=== PATIENT | female | born 1980 | race Caucasian/White ===

== ENCOUNTER 2018-08-01 13:00 | Emergency (ER) | payer OTHER, SELFPAY ==
[2018-08-01 13:06] VITALS: BP 118/74; PULSE 53; RESP 18; TEMP 35.9; O2SAT 98; BMI 27.8
--- NOTE | 2018-08-01 13:42 | PC.NURSE ---
Pt w/ left 1st knuckle pain and swelling w/ redness. Pt has been gardening and may have foreign body. Hurts to extend. Can make a fist w/ pain. Full CSM w/ movement only limited by pain. TDAP up to date. Area of redness marked w/ skin marker.
--- NOTE | 2018-08-01 13:43 | DI.RAD.S_ITS ---
PROCEDURE: XR HAND RT 2V INDICATIONS: red/swollen/painful 1st knuckle: ? if foreign body TECHNIQUE: 2 views of the hand(s) acquired. COMPARISON: None. FINDINGS: Bones: No fractures or dislocations. Carpal bones are normally aligned. No suspicious bony lesions. No bony erosive changes are seen. Soft tissues: No suspicious soft tissue calcifications. Mild soft tissue swelling over dorsal aspect of metacarpal heads are seen. IMPRESSION: Mild dorsal soft tissue swelling over dorsal aspect of second metacarpal head. No acute fracture or dislocation. No radiopaque foreign body. No radiographic evidence of osteomyelitis. Dictated by: Sae Whitlock M.D. on 08/01/2018 at 14:13 Approved by: Sae Whitlock M.D. on 08/01/2018 at 14:14
--- NOTE | 2018-08-01 13:49 | ED_ITS ---
HPI - Extremity Injury (Upper) <RASHI Alfaro - Last Filed: 08/01/18 14:59> General Chief Complaint: Extremity Injury, Upper Stated Complaint: pain in right hand Time Seen by Provider: 08/01/18 13:41 Source: patient Mode of arrival: ambulatory Limitations: no limitations History of Present Illness HPI narrative: The patient is a 38-year-old female nonsmoker with history of carpal tunnel on her right hand presents with chief complaint of pain in her right hand. She was gardening a few days ago, and is concerned that she has a thorn or sticking dental stuck in her hand. She states she did remove a thorn from that area 2 days ago. She has been soaking her hand in Epsom salts. She denies any fevers nausea vomiting diarrhea. She stated redness noted yesterday and has been extending today. She states that the pain is over the base of her right pointer finger. She states it is becoming increasingly hard to move her right pointer finger. She states her tetanus is up-to-date within the past few years. Related Data Previous Rx's Medication Instructions Recorded cephalexin 500 mg PO QID #40 cap 08/01/18 Allergies Allergy/AdvReac Type Severity Reaction Status Date / Time No Known Drug Allergies Allergy Verified 08/01/18 13:11 Review of Systems <RASHI Alfaro - Last Filed: 08/01/18 14:59> Review of Systems GENERAL: Denies chills, fatigue, malaise, fever, sweats. HEENT: Denies sinus pain, ear pain, sore throat, difficulty swallowing, dizziness. RESPIRATORY: Denies dyspnea, cough, wheezing, hemoptysis, sputum. CARDIOVASCULAR: Denies chest pain, palpitations, orthopnea, edema, GASTROINTESTINAL: Denies nausea, vomiting, abdominal pain, diarrhea, constipation, melena. : Denies dysuria, frequency, incontinence, hematuria, urinary retention. MUSCULOSKELETAL: See HPI SKIN: See HPI NEUROLOGIC: Denies weakness, headache, numbness, change in speech, confusion, seizures, incoordination. PSYCHIATRIC: No concerning psychosocial issues. 12 point review of systems is negative except for those stated above PFSH <RASHI Alfaro - Last Filed: 08/01/18 14:59> Medical History (Updated 08/01/18 @ 14:55 by RASHI Alfaro) History of carpal tunnel syndrome (Acute) Social History Smoking Status: Never smoker Social History Smoking Status: Never smoker Exam <RASHI Alfaro - Last Filed: 08/01/18 14:59> Narrative Exam Narrative: GENERAL: This is a well-nourished, well-developed patient, in no acute distress HEAD: Atraumatic. Normocephalic. No temporal or scalp tenderness. EYES: Pupils equal round and reactive. Extraocular motions intact. No scleral icterus. No injection or drainage. ENT: Nose without bleeding, purulent drainage or septal hematoma. Throat without erythema, tonsillar hypertrophy or exudate. Uvula midline. Airway patent. NECK: Trachea midline. No JVD or lymphadenopathy. Supple, nontender, no meningeal signs. CARDIOVASCULAR: Regular rate and rhythm RESPIRATORY: No cough. No increased respiratory effort. No accessory muscle use. EXTREMITIES: Slightly decreased flexion of right 2nd digit. Capillary refill less than 2 seconds all fingers right hand. Radial pulse intact right hand. BACK: Nontender without deformity or crepitance. No flank tenderness. NEURO: AOx3. SKIN: 3 x 3 cm of erythema at the base of the pointer finger right. No drainage. No obvious laceration or abrasion. Initial Vital Signs Initial Vital Signs: Vital Signs Temperature 96.7 F L 08/01/18 13:06 Pulse Rate 53 L 08/01/18 13:06 Respiratory Rate 18 08/01/18 13:06 Blood Pressure 118/74 08/01/18 13:06 Pulse Oximetry 98 08/01/18 13:06 <Carmella Gray DO - Last Filed: 08/04/18 21:46> Initial Vital Signs Initial Vital Signs: Vital Signs Temperature 96.7 F L 08/01/18 13:06 Pulse Rate 53 L 08/01/18 13:06 Respiratory Rate 18 08/01/18 13:06 Blood Pressure 118/74 08/01/18 13:06 Pulse Oximetry 98 08/01/18 13:06 Course <RASHI Alfaro - Last Filed: 08/01/18 14:59> Orders Ordered: Discontinued Medications Ketorolac Tromethamine (Toradol) 60 mg IM NOW ONE Stop: 08/01/18 13:47 Last Admin: 08/01/18 14:06 Dose: 60 mg Vital Signs - 8 hr 08/01/18 13:06 Temperature 96.7 F L Pulse Rate 53 L Respiratory Rate 18 Blood Pressure 118/74 Pulse Oximetry 98 <Carmella Gray DO - Last Filed: 08/04/18 21:46> Orders Ordered: Discontinued Medications Ketorolac Tromethamine (Toradol) 60 mg IM NOW ONE Stop: 08/01/18 13:47 Last Admin: 08/01/18 14:06 Dose: 60 mg Vital Signs - 8 hr 08/01/18 13:06 Temperature 96.7 F L Pulse Rate 53 L Respiratory Rate 18 Blood Pressure 118/74 Pulse Oximetry 98 MDM - Extremity Injury (Upper) <RASHI Alfaro - Last Filed: 08/01/18 14:59> Imaging Data hand xray : Radiologist's impression: [place] [address] XRay Report Signed Patient: Estefani Dow LMR#: [id number] : 1980Acct:[id number] Age/Sex: 38 / FDate of Service: 08/01/18 Loc: ED Accession Number: [id number] Procedure: XR hand RT 2V Ordering Provider: Sri Ash PROCEDURE: XR HAND RT 2V INDICATIONS: red/swollen/painful 1st knuckle: ? if foreign body TECHNIQUE: 2 views of the hand(s) acquired. COMPARISON: None. FINDINGS: Bones: No fractures or dislocations. Carpal bones are normally aligned. No suspicious bony lesions. No bony erosive changes are seen. Soft tissues: No suspicious soft tissue calcifications. Mild soft tissue swelling over dorsal aspect of metacarpal heads are seen. IMPRESSION: Mild dorsal soft tissue swelling over dorsal aspect of second met acarpal head. No acute fracture or dislocation. No radiopaque foreign body. No radiographic evidence of osteomyelitis. Dictated by: Sae Whitlock M.D. on 08/01/2018 at 14:13 Approved by: Sae Whitlock M.D. on 08/01/2018 at 14:14 [facility] Narrative Medical decision making narrative: The patient is a 38-year-old female who presents with redness and pain on her right hand. Her exam is concerning for cellulitis. X-ray shows no foreign body or evidence of osteomyelitis. She does not have any systemic symptoms, is afebrile, and hemodynamically stable. The patient was placed on cephalexin as she has no history of diabetes, no recent surgery etc. Discussed at length follow up with primary care provider. Discussed return precautions to the emergency department cleaning worsening, fever etc. Discussed monitoring for spreading of the infection. Patient has no questions or concerns upon discharge. Discharge Plan Departure Patient Disposition: Home Clinical Impression: Cellulitis Qualifiers: Site of cellulitis: extremity Site of cellulitis of extremity: upper extremity Laterality: right Qualified Code(s): L03.113 - Cellulitis of right upper limb Discharge Date/Time: 08/01/18 15:00 Interventions: ED Discharge Assessment Last Done: 08/01/18 15:00 Instructions: DI for Cellulitis -- Adult Activity Restrictions/Additional Instructions: Your x-ray shows no foreign body and no fracture Lets start you on antibiotics for skin infection. This will take several doses to kick in. Please follow up with primary care physician. Please come back to the emergency department for any acute concerns such as fever, inability keep down fluids etc. Please use rest ice compression elevation as well. Monitor the outline for any spreading of the infection. Please continue to use [id number] pain medications as needed and able. Do not take ibuprofen for 6-8 hours after the Toradol injection. Prescriptions: New cephalexin 500 mg capsule 500 mg PO QID Qty: 40 RF: 0 Referrals: [facility] [Provider Group] <Carmella Gray, - Last Filed: 08/04/18 21:46> Cosign ED Attending Arley Attestation: I was immediately available in the department for consultation. Documentation has been reviewed. I agree with assessment and plan.
[2018-08-01] MEDS: KETOROLAC 60 MG/2 ML VIAL IM (14:06)
[2018-08-01 15:00] VITALS: BP 113/72; PULSE 53; RESP 16; TEMP 36.9; O2SAT 99
== END 2018-08-01 15:00 | disposition home or self-care (01) ==
PROVIDERS: Emergency Provider Nurse Practitioner Family
DX: L03.113 Cellulitis of right upper limb (principal); Y93.H2 Activity, gardening and landscaping
CPT/HCPCS: 73120; 96372; 99282; 99283; J1885